=== PATIENT | female | born 1970 | race Caucasian/White ===

== ENCOUNTER → 2018-06-30 | Outpatient (CLI) | payer BC ==
[~2018-06-30] MED LIST: ADVIL200 MG PO; NOHOMEMEDS; VENTOLIN HFA18 GM IH; ZOLOFT50 MG
== END | disposition home or self-care (01) ==
LOC: CDC 15:21
DX: Z01.810 Encounter for preprocedural cardiovascular examination (principal); J44.9 Chronic obstructive pulmonary disease, unspecified
CPT/HCPCS: 93000

== ENCOUNTER 2018-07-04 08:41 | Day surgery (SDC) | payer BC ==
[~2018-07-04] VITALS: Ht 167.6 cm; Wt 61.2 kg
[2018-07-04 09:19] VITALS: BP 109/53
[2018-07-04 14:42] VITALS: BP 112/62
[2018-07-04 17:08] LABS: HEMATOCRIT 38.4 % (36.0-46.0); HEMOGLOBIN 13.4 G/DL (11.9-15.5); MCV 96.5 FL (83-99)
[2018-07-04 18:45] VITALS: BP 109/63
[2018-07-04 23:08] VITALS: BP 100/58
[2018-07-05 03:59] VITALS: BP 104/61
[2018-07-05 05:05] LABS: HEMATOCRIT 35.5 % (36.0-46.0); HEMOGLOBIN 12.2 G/DL (11.9-15.5); MCH 33.6 PG (29.0-34.0); MCHC 34.4 G/DL (30.0-36.0); MCV 97.8 FL (83-99); PLATELET COUNT 167 K/uL (156-360); RBC DIS.WIDTH-CV 12.8 % (11.8-14.6); RBC DIS.WIDTH-SD 45.9 % (39-53); RED BLOOD COUNT 3.63 M/uL (3.80-5.20); WHITE BLOOD COUNT 11.1 K/uL (4.1-10.2)
[2018-07-05 05:52] LABS: CHLORIDE 106 MEQ/L (99-109); CREATININE 0.6 MG/DL (0.6-1.3); GFR ESTIMATE (CALCULATED) > 59 mL/min/; GLUCOSE 107 mg/dL (70-99); POTASSIUM 4.3 MEQ/L (3.7-5.4); SODIUM 140 MEQ/L (136-147); UREA NITROGEN (BUN) 5 mg/dL (9-23)
[2018-07-05 07:02] VITALS: BP 108/73
[2018-07-05 11:13] VITALS: BP 106/57
[2018-07-05] MEDS ORDERED: MOTRIN600 MG PO (11:47)
[2018-07-05] MEDS ORDERED: ENDOCET 5-3251 EACH PO (11:47)
[2018-07-05] MEDS ORDERED: DOCUSATE SODIU100 MG PO (11:47)
== END 2018-07-05 12:12 | disposition home or self-care (01) ==
LOC: SDC → 2SOUTH 11:30 → 2EAST 11:30 → 2SOUTH 11:30 → SDC 11:50 → ENRESERV 12:26 → SDC 13:18 → 2EAST 14:36
PROVIDERS: Obstetrics & Gynecology
DX: N92.1 Excessive and frequent menstruation with irregular cycle (principal); N80.0 Endometriosis of uterus; N83.8 Other noninflammatory disorders of ovary, fallopian tube and broad ligament; N94.6 Dysmenorrhea, unspecified; N93.0 Postcoital and contact bleeding; Z98.51 Tubal ligation status; K66.0 Peritoneal adhesions (postprocedural) (postinfection); N80.3 Endometriosis of pelvic peritoneum; J44.9 Chronic obstructive pulmonary disease, unspecified; F17.200 Nicotine dependence, unspecified, uncomplicated; Z82.49 Family history of ischemic heart disease and other diseases of the circulatory system; Z80.1 Family history of malignant neoplasm of trachea, bronchus and lung; Z83.3 Family history of diabetes mellitus; Z82.0 Family history of epilepsy and other diseases of the nervous system; Z88.5 Allergy status to narcotic agent
CPT/HCPCS: 71046; 80048; 85014; 85018; 85027; 88307; G0378; J0330; J0690; J1170; J2250; J2270; J2405; J3010; J7120; Q0175